=== PATIENT | female | born 1975 | race Caucasian/White ===

== ENCOUNTER 2018-03-03 08:58 | Emergency (ER) | payer OTHER ==
[~2018-03-03] VITALS: Ht 152.4 cm; Wt 77.1 kg
[~2018-03-03 08:58] MED LIST: ACETAMINOPHEN325 M1 PO; ADULT LOW DOSE81 MG; AMBIEN 10 MG TA10 MG; AMBIEN 10 MG TA10 MG PO; ATIVAN1 MG PO; ATIVAN2 MG; B12INJ; BACLOFEN20 MG PO; CALCIUM W/VIT1 EACH; CELEXA 20 MG TA20 MG PO; CIPROFLOXACIN500 M3 PO; CODEIN PO; DESYREL50 MG; DIPHENHYDRAM50 MG/M2 IM; DIPHENHYDRAMINE50 MG PO; EFFEXOR XR150 MG; FERROUS GLUCON325 M4; FIORICET 50-301 EACH PO; FIORICET 50-321 EACH; FIORINAL PO; FLAGYL 250 MG250 MG PO; GEODON 20 MG IM; HYDROCODON-ACE1 EAC7 PO; HYDROCODON-ACE1 EACH PO; HYDROCODONE-AP1 EAC6 PO; HYDROGEN PEROX480 M1 TOP; HYDROXYZINE HCL25 M1 PO; IBUPROFEN 800800 MG PO; LISINOPRIL10 MG; LUNESTA3 MG; LUNESTA3 MG PO; METHOCARBAMOL500 M1 PO; METHOCARBAMOL750 MG; MUCINEX DM TABL1 TA1; MULTIVITAMINS; NITROGLYCERIN0.4 MG; NORCO 5-325 TA1 EACH; ONDANSETRON HCL4 M2 PO; PENICILLIN VK250 MG PO; PERIDEX 0.12%473 M1 PO; PHENERGAN 25 MG25 M1; PHENERGAN 25 MG25 M1 PO; PLAVIX 75 MG TA75 M1 PO; PLAVIX 75 MG TA75 MG; PREDNISONE 10 M10 M1; PREDNISONE 20 M20 M1 PO; PROCHLORPERAZINE5 M2 PO; ROBAXIN 750 MG750 M1; ROBAXIN 750 MG750 M1 PO; ROBAXIN500 MG PO; TEGRETOL XR200 MG PO; TIZANIDINE HCL4 MG; TOPAMAX50 MG PO; ULTRAM 50MG TAB50 MG PO; VENLAFAXINE HC150 M1 PO; VICODIN HP 10-1 EAC1; ZYPREXA 10 MG T10 M1 PO; ZYPREXA5 MG PO; [UNRECOGNIZED DRUG - OTHER] IM; [UNRECOGNIZED DRUG - OTHER] IM
[2018-03-03] MEDS ORDERED: SERTRALINE HCL50 MG PO (09:10)
[2018-03-03 10:15] LABS: ABSOLUTE EOSINOPHILS 0.1 thou/uL (0.0-0.7); ABSOLUTE LYMPHOCYTES 1.1 thou/uL (0.8-5.3); ABSOLUTE MONOCYTES 0.3 thou/uL (0.0-1.2); ABSOLUTE NEUTROPHILS 3.3 thou/uL (1.6-8.1); BASOPHILS 0.4 %; EOSINOPHILS 1.4 %; HEMATOCRIT 30.3 % (37.0-47.0); LYMPHOCYTES 23.1 %; MCH 27.4 pg (26.0-34.0); MONOCYTES 5.8 %; MPV 7.2 fl. (7.2-11.1); NUCLEATED RBCS 0 /100WBC; PLATELET COUNT* 280 thou/uL (150-400); POLYS 69.3 %; RBC 3.65 mil/uL (4.20-5.00); RDW-CV 16.7 % (10.5-14.5); WBC 4.7 thou/uL (4.0-11.0)
[2018-03-03 10:22] LABS: CALCIUM 8.9 mg/dL (8.5-10.1); CREATININE 0.8 mg/dL (0.6-1.3); POTASSIUM 3.1 mmol/L (3.5-5.1)
[2018-03-03] MEDS ORDERED: PHENERGAN 25 MG25 M1 PO (11:51)
[2018-03-03] MEDS ORDERED: NORCO 5-325 TA1 EACH PO (11:51)
[2018-03-03] MEDS ORDERED: AUGMENTIN 500-1 EACH PO (11:51)
[2018-03-03 12:28] VITALS: BP 139/80
== END 2018-03-03 12:31 | disposition home or self-care (01) ==
LOC: M.ERS 08:58
PROVIDERS: Personal Emergency Response Attendant
DX: S70.12XA Contusion of left thigh, initial encounter (principal); G89.29 Other chronic pain; M54.9 Dorsalgia, unspecified; F17.210 Nicotine dependence, cigarettes, uncomplicated; Z90.710 Acquired absence of both cervix and uterus; Z91.041 Radiographic dye allergy status; Z88.8 Allergy status to other drugs, medicaments and biological substances; W54.0XXA Bitten by dog, initial encounter; Y93.89 Activity, other specified; Y92.89 Other specified places as the place of occurrence of the external cause; Y99.8 Other external cause status

== ENCOUNTER 2018-03-18 16:52 | Inpatient (IN) | payer OTHER ==
[~2018-03-18] VITALS: Ht 152.4 cm; Wt 78.7 kg
[~2018-03-18 16:52] MED LIST changes: +AUGMENTIN 500-1 EACH PO; +NORCO 5-325 TA1 EACH PO; +SERTRALINE HCL50 MG PO
[2018-03-18 17:06] VITALS: BP 131/79
[2018-03-18 17:54] LABS: ABSOLUTE EOSINOPHILS 0.1 thou/uL (0.0-0.7); ABSOLUTE LYMPHOCYTES 1.6 thou/uL (0.8-5.3); ABSOLUTE MONOCYTES 0.3 thou/uL (0.0-1.2); ABSOLUTE NEUTROPHILS 4.7 thou/uL (1.6-8.1); BASOPHILS 0.6 %; EOSINOPHILS 2.1 %; HEMATOCRIT 31.6 % (37.0-47.0); LYMPHOCYTES 23.3 %; MCH 26.8 pg (26.0-34.0); MCHC 31.7 g/dL (28.0-37.0); MCV 84.4 fL (80.0-100.0); MONOCYTES 4.6 %; MPV 7.5 fl. (7.2-11.1); NUCLEATED RBCS 0 /100WBC; PLATELET COUNT* 300 thou/uL (150-400); POLYS 69.4 %; RBC 3.74 mil/uL (4.20-5.00); WBC 6.7 thou/uL (4.0-11.0)
[2018-03-18 18:00] LABS: CALCIUM 8.9 mg/dL (8.5-10.1); POTASSIUM 3.7 mmol/L (3.5-5.1)
[2018-03-18 18:07] LABS: ALBUMIN 3.5 g/dL (3.4-5.0); TOTAL BILIRUBIN 0.2 mg/dL (<0.1-1.0); TOTAL PROTEIN 7.1 g/dL (6.4-8.2)
[2018-03-18 19:00] LABS: ESR (SEDRATE) 38 mm/hr (0-20)
[2018-03-18 20:08] LABS: URINE BILIRUBIN NEGATIVE (Negative); URINE BLOOD NEGATIVE (Negative); URINE CLARITY CLEAR; URINE COLOR YELLOW; URINE GLUCOSE-RANDOM NEGATIVE (Negative); URINE KETONES NEGATIVE (Negative); URINE LEUKOCYTES-REFLEX TRACE (Negative); URINE PROTEIN NEGATIVE (Negative); URINE SPECIFIC GRAVITY 1.025 (1.005-1.030); URINE UROBILINOGEN 0.2 E.U./dl (0.2-1.0)
[2018-03-18 20:10] LABS: URINE NITRITE-REFLEX POSITIVE (Negative)
[2018-03-18 20:16] LABS: AMP/METHAMP POSITIVE (Negative); BARBITURATES Negative (Negative); BENZODIAZEPINES Negative (Negative); COCAINE Negative (Negative); METHADONE Negative (Negative); OPIATES Negative (Negative); PCP Negative (Negative); THC Negative (Negative)
[2018-03-18 20:19] LABS: BACTERIA-REFLEX None Seen /HPF (None Seen); CASTS None Seen /LPF (None Seen); CRYSTALS None Seen /LPF (None Seen); SQUAMOUS 4-10 Moderate /LPF (0-3); URINE RBC None Seen /HPF (0-2); URINE WBC-REFLEX 0-5 Rare /HPF (0-5)
[2018-03-18 20:34] VITALS: BP 120/77
[2018-03-18 23:37] VITALS: BP 121/75
[2018-03-18 23:39] VITALS: BP 95/48
[2018-03-19 03:55] VITALS: BP 105/70
[2018-03-19 07:40] VITALS: BP 111/63
--- NOTE | 2018-03-19 07:55 | NUR ---
REPORT RECIEVED FROM ER. PT ORIENTED TO ROOM. ASSESSMENT DOCUMENTED. MEDS GIVEN PER E-MAR. PT VERY DROWZY DURING ADMISSION, HAVING TO BE WOKEN MULTIPLE TIMES FOR EVERY QUESTION. PULSE RAN HIGH 30'S TO LOW 40'S AND BP 95/48. PT ALSO ASKING FOR PAIN MEDICATIONS AT THAT TIME. NOTIFED. ORDERS RECIEVED, PT PLACED ON TELE MONITOR READING SB. IV PATENT, FLUIDS INFUSING. WILL CONTINUE WITH PLAN OF CARE.
--- NOTE | 2018-03-19 10:44 | NUR ---
Pt is A&O. Resides at home alone, independent with ADLs. Supportive mother and sister. No DME. No hx of HH or SNF. Pt sees a therapist at [facility] in [place] for MH issues. Pt stated that she submitted a [place] Medicaid lolly a couple of months ago, and has not had an update on the status. Pt stated that that is why she hasn't been able to afford her prescriptions, because her YU had lapsed. CM faxed facesheet to Ingrid at [facility] and requested that she update Pt on the status of her lolly. Following for disposition.
[2018-03-19 12:00] VITALS: BP 107/68
--- NOTE | 2018-03-19 13:34 | EKG ---
[place] [address] ELECTROCARDIOGRAM REPORT Name: RYLEE MERINO Room: [address] ADM IN M.R.#: [id number] Admission: 03/18/18 Attend Phys: Jhoan Champagne Discharge: Date of : 75 Report #: [id number] THIS REPORT FOR: //name// [facility] ED Test Date: 2018-03-18 Test Time: 18:12:36 Pat Name: RYLEE MERINO Department: Room: [address] Gender: F Apprentice Painter Brush: ADRIANNA : 1975 Requested By: Remedios Raymond Order Number: [id number] Annette MD: Evans Dempsey Measurements Intervals [place] Rate: 65 P: 36 VT: 190 QRS: 28 QRSD: 88 T: 32 QT: 450 QTc: 468 Interpretive Statements Sinus rhythm Compared to ECG 05/30/2013 22:35:11 Sinus bradycardia no longer present Electronically Signed On 03-19-2018 13:34:49 CDT by Evans Dempsey [email or web address] <ELECTRONICALLY SIGNED> By: Evans Dempsey MD, [facility] 03/19/18 1334 11 11 Evans Dempsey MD, FACC /EPI
--- NOTE | 2018-03-19 14:45 | NUR ---
PATIENT IS ALERT AND ORIENTED, SLEEPING MOST OF THE DAY. SOME COMPLAINTS OF MILD PAIN TODAY. VITAL SIGNS STABLE ON ROOM AIR. CALL LIGHT IS IN REACH, WILL PASS ON REPORT TO NURSE.
[2018-03-19 15:47] VITALS: BP 109/63
--- NOTE | 2018-03-19 18:38 | NUR ---
ASSUMED CARE THIS AFTERNOON, ORAL MEDICATION PROVIDED FOR LEFT BUTTOCK/THIGH DISCOMFORT, ASSESSMENT REVIEWED, AGREE WITH ASSESSMENT, IVF AND IV ABT ADMIN WITHOUT S/S ADR. CALL LIGHT IN REACH, CONT POC.
[2018-03-19 20:20] VITALS: BP 107/49
[2018-03-20] VITALS: BP 107/55
[2018-03-20 03:45] VITALS: BP 110/55
[2018-03-20 04:55] LABS: HEMATOCRIT 29.4 % (37.0-47.0); HEMOGLOBIN 9.3 gm/dL (12.0-15.0); MCH 26.9 pg (26.0-34.0); MCHC 31.6 g/dL (28.0-37.0); MCV 85.4 fL (80.0-100.0); MPV 8.4 fl. (7.2-11.1); RBC 3.44 mil/uL (4.20-5.00); WBC 7.9 thou/uL (4.0-11.0)
--- NOTE | 2018-03-20 05:07 | NUR ---
PT SLEPT AT INTERVALS DURING THE NIGHT, IV FLUIDS AND ANTIBIOTICS GIVEN, PLEASANT, PHYSICIAN CONTACTED LAST NIGHT AND ALTERNATE PAIN MEDICATIONS ORDERED PER REQUEST, WOUND OPEN TO AIR, CALL LIGHT IN REACH, WILL CONTINUE TO MONITOR
[2018-03-20 05:20] LABS: ALBUMIN 2.8 g/dL (3.4-5.0); CALCIUM 8.1 mg/dL (8.5-10.1); CREATININE 0.9 mg/dL (0.6-1.3); TOTAL BILIRUBIN 0.2 mg/dL (<0.1-1.0); TOTAL PROTEIN 5.6 g/dL (6.4-8.2)
[2018-03-20 08:15] VITALS: BP 123/82
[2018-03-20 12:16] VITALS: BP 127/76
[2018-03-20 16:01] VITALS: BP 134/78
--- NOTE | 2018-03-20 16:27 | NUR ---
PATIENT GIVEN PRN VICODIN FOR LEFT THIGH PAIN X 2 THIS SHIFT GOOD RELIEF NOTED. PATIENT C/O NECK PAIN, WARM BLANKETS GIVEN AND PAIN RELIEVING. IVF AND SCHED ABX INFUSING. IV TO BE SL THIS EVENING. WOUND TO LEFT THIGH SMALLER IN SIZE THIS EVENING SINCE AM'S ASSESSMENT. POSSIBLE DISCHARGE TOMORROW.
[2018-03-20 20:10] VITALS: BP 146/83
[2018-03-21 00:35] VITALS: BP 139/70
[2018-03-21 04:22] VITALS: BP 142/79
[2018-03-21 04:32] LABS: HEMOGLOBIN 9.2 gm/dL (12.0-15.0); MCHC 31.6 g/dL (28.0-37.0); MCV 85.4 fL (80.0-100.0); MPV 8.2 fl. (7.2-11.1); RBC 3.39 mil/uL (4.20-5.00); RDW-CV 17.4 % (10.5-14.5); WBC 5.8 thou/uL (4.0-11.0)
--- NOTE | 2018-03-21 05:08 | NUR ---
PT SLEPT AT INTERVALS DURING THE NIGHT, PLEASANT, LEFT LEG ACHY AND PRN PAIN MEDS GIVEN, UP AD ROBERT, IV ANTIBIOTIC GIVEN, PLEASANT, CALL LIGHT IN REACH, WILL CONTINUE TO MONITOR
[2018-03-21 05:29] LABS: ALBUMIN 2.8 g/dL (3.4-5.0); CREATININE 0.9 mg/dL (0.6-1.3); MAGNESIUM 1.9 mg/dL (1.8-2.4); POTASSIUM 4.6 mmol/L (3.5-5.1); TOTAL BILIRUBIN 0.1 mg/dL (<0.1-1.0); TOTAL PROTEIN 5.4 g/dL (6.4-8.2)
[2018-03-21 09:15] VITALS: BP 139/79
[2018-03-21 12:00] VITALS: BP 139/76
[2018-03-21 16:00] VITALS: BP 146/84
[2018-03-21] MEDS ORDERED: AUGMENTIN 500-1 EACH PO (17:12)
[2018-03-21 17:53] VITALS: BP 146/84
[2018-03-21] MEDS ORDERED: TYLENOL EXTRA500 MG PO (17:56)
--- NOTE | 2018-03-21 18:30 | NUR ---
PATIENT GIVEN PRN VICODIN FOR LEFT THIGH PAIN X 2 THIS SHIFT. IVF SCHED ABX INFUSED ORDERED. AUGMENTIN CALLED INTO [facility] PER DR. JIMÉNEZ ORDERS. PATIENT DISCHARGED TO HOME WITH FAMILY. VERBALIZES UNDERSTANDING OF PAPERWORK. PATIENT AMBULATED OUT WITH NURSING STAFFF.
== END 2018-03-21 18:30 | disposition home or self-care (01) | DRG 605 ==
LOC: M.ERS 16:52 → M.TBA-ER 18:16 → M.3W 20:45
PROVIDERS: Family Medicine; Nurse Practitioner; ADMIT Internal Medicine
DX: S81.852A Open bite, left lower leg, initial encounter (principal); N39.0 Urinary tract infection, site not specified; D64.9 Anemia, unspecified; K58.9 Irritable bowel syndrome, unspecified; L08.9 Local infection of the skin and subcutaneous tissue, unspecified; F17.210 Nicotine dependence, cigarettes, uncomplicated; Q63.9 Congenital malformation of kidney, unspecified; I25.2 Old myocardial infarction; M25.552 Pain in left hip; G89.29 Other chronic pain; M54.9 Dorsalgia, unspecified; F11.10 Opioid abuse, uncomplicated; W54.0XXA Bitten by dog, initial encounter; Z87.828 Personal history of other (healed) physical injury and trauma; Z95.5 Presence of coronary angioplasty implant and graft; Z90.710 Acquired absence of both cervix and uterus; Z98.84 Bariatric surgery status; Z88.8 Allergy status to other drugs, medicaments and biological substances; Z88.4 Allergy status to anesthetic agent; Z91.041 Radiographic dye allergy status; Z79.2 Long term (current) use of antibiotics; Z79.899 Other long term (current) drug therapy; Y93.89 Activity, other specified; Y92.89 Other specified places as the place of occurrence of the external cause; Y99.8 Other external cause status

== ENCOUNTER 2018-10-16 10:20 | Emergency (ER) | payer OTHER ==
[~2018-10-16] VITALS: Ht 152.4 cm; Wt 77.1 kg
[~2018-10-16 10:20] MED LIST changes: +TYLENOL EXTRA500 MG PO
[2018-10-16 10:56] LABS: URINE BLOOD NEGATIVE (Negative); URINE CLARITY CLEAR; URINE COLOR YELLOW; URINE GLUCOSE-RANDOM TRACE (Negative); URINE KETONES TRACE (Negative); URINE LEUKOCYTES-REFLEX 1+ (Negative); URINE NITRITE-REFLEX NEGATIVE (Negative); URINE PROTEIN 1+ (Negative); URINE SPECIFIC GRAVITY 1.025 (1.005-1.030)
[2018-10-16 10:58] LABS: ICTOTEST (BILI CONFIRMATORY) Negative (Negative); URINE BILIRUBIN 1+ (Negative)
[2018-10-16 11:04] LABS: BACTERIA-REFLEX 1-9 Few /HPF (None Seen); MUCUS 4-6 Moderate strn/LPF (None Seen); SQUAMOUS 4-10 Moderate /LPF (0-3); URINE RBC 0-2 Rare /HPF (0-2); URINE WBC-REFLEX 6-15 Few /HPF (0-5)
[2018-10-16 11:05] LABS: CASTS None Seen /LPF (None Seen); CRYSTALS None Seen /LPF (None Seen)
[2018-10-16] MEDS ORDERED: ACETAMINOPHEN-1 EAC1 PO (11:14)
[2018-10-16] MEDS ORDERED: KEFLEX500 M1 PO (11:14)
[2018-10-16 11:32] VITALS: BP 111/74
[2018-10-16 11:42] LABS: INFLUENZA A ANTIGEN None Detected (None Detect); INFLUENZA B ANTIGEN None Detected (None Detect)
--- NOTE | 2018-10-17 11:18 | EKG ---
[place] [address] ELECTROCARDIOGRAM REPORT Name: RYLEE MERINO [id number] Admission: 10/16/18 Attend Phys: Discharge: 10/16/18 Date of : 75 Report #: [id number] THIS REPORT FOR: //name// [facility] ED Test Date: 2018-10-16 Test Time: 10:35:32 Pat Name: RYLEE MERINO Department: Room: Gender: F Front Clerk: JAZMINE : 1975 Requested By: Mallorie Matthews Order Number: [id number] Annette MD: Virgilio Carvajal Measurements Intervals [place] Rate: 97 P: 41 WV: 167 QRS: 8 QRSD: 80 T: 26 QT: 340 QTc: 432 Interpretive Statements Sinus rhythm Baseline wander in lead(s) V4 Compared to ECG 03/18/2018 18:12:36 No significant changes Electronically Signed On 10-17-2018 11:17:52 MANNEQUIN REFINISHER by Virgilio Carvajal [email or web address] <ELECTRONICALLY SIGNED> By: Virgilio Carvajal MD, [facility] 10/17/18 1117 1035 34 Virgilio Carvajal MD, FACC /EPI
== END 2018-10-16 11:32 | disposition home or self-care (01) ==
LOC: M.ERS 10:20
PROVIDERS: Physician Assistant
DX: J20.9 Acute bronchitis, unspecified (principal); N39.0 Urinary tract infection, site not specified; K58.9 Irritable bowel syndrome, unspecified; G89.29 Other chronic pain; M54.9 Dorsalgia, unspecified; F17.210 Nicotine dependence, cigarettes, uncomplicated; Z88.8 Allergy status to other drugs, medicaments and biological substances; Z90.710 Acquired absence of both cervix and uterus; Z91.041 Radiographic dye allergy status

== ENCOUNTER 2021-06-17 18:31 | Emergency (ER) | payer OTHER ==
[~2021-06-17] VITALS: Ht 154.9 cm; Wt 72.6 kg
[~2021-06-17 18:31] MED LIST changes: +ACETAMINOPHEN-1 EAC1 PO; +KEFLEX500 M1 PO
[2021-06-17] MEDS ORDERED: BUSPAR30 MG PO (18:37)
[2021-06-17] MEDS ORDERED: ABILIFY10 MG PO (18:38)
[2021-06-17] MEDS ORDERED: ZOLOFT100 MG PO (18:38)
[2021-06-17] MEDS ORDERED: DESYREL150 MG PO (18:38)
[2021-06-17] MEDS ORDERED: COZAAR 25 MG TA25 M1 PO (18:38)
[2021-06-17] MEDS ORDERED: BACTRIM DS TAB1 EACH PO (20:17)
[2021-06-17] MEDS ORDERED: CEPHALEXIN500 MG PO (20:17)
[2021-06-17] MEDS ORDERED: HYDROCODON-ACE1 EAC8 PO (20:22)
[2021-06-17 20:30] VITALS: BP 155/89
== END 2021-06-17 20:30 | disposition home or self-care (01) ==
LOC: M.ERS 18:31
DX: L03.811 Cellulitis of head [any part, except face] (principal); I25.2 Old myocardial infarction; F17.210 Nicotine dependence, cigarettes, uncomplicated; Z87.42 Personal history of other diseases of the female genital tract; Z95.5 Presence of coronary angioplasty implant and graft; Z90.711 Acquired absence of uterus with remaining cervical stump; Z98.84 Bariatric surgery status; Z79.899 Other long term (current) drug therapy; Z88.8 Allergy status to other drugs, medicaments and biological substances; Z88.4 Allergy status to anesthetic agent; Z91.041 Radiographic dye allergy status